=== PATIENT | male | born 1980 | race Caucasian/White ===

== ENCOUNTER 2017-06-28 20:01 | Emergency (ER) | payer SELFPAY ==
[2017-06-28] MEDS ORDERED: Orphenadrine 100 MG Tab.ER PO STA (20:36)
--- NOTE | 2017-06-28 20:36 | EDM.PDOC ---
ED HPI GENERAL MEDICAL PROBLEM - General Chief Complaint: Upper Extremity Injury/Pain Stated Complaint: SHOULDER PAIN Time Seen by Provider: 06/28/17 20:18 Source of Information: Reports: Patient History Limitations: Reports: No Limitations - History of Present Illness INITIAL COMMENTS - FREE TEXT/NARRATIVE: The patient states that he has had anterior left axillary and upper left trapezius area pain for the past 4-5 days. He states that he slipped and fell on ice a couple of weeks ago, landing on his left wrist, but he did not injure his shoulder, and denies any other shoulder injury or known strain. He states that heat helps, as well as a Lidoderm patch which she started yesterday. No prior similar symptoms. The patient does not have a PCP. 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 Left Shoulder Pain Score (Numeric/FACES): 3 - Related Data Allergies Allergy/AdvReac Type Severity Reaction Status Date / Time No Known Allergies Allergy Verified 06/28/17 20:08 Home Meds: Home Meds Amphetamine/Dextroamphetamine [Adderall] 20 mg PO DAILY 06/28/17 [History] Orphenadrine [Norflex] 1 tab PO Q12H PRN #14 tab.er 06/28/17 [Rx] Past Medical History Cardiovascular History: Reports: Hypertension Psychiatric History: Reports: ADHD Endocrine/Metabolic History: Reports: Obesity/BMI 30+ - Past Surgical History Cardiovascular Surgical History: Reports: Other (See Below) (Left femoral artery repair) Social & Family History - Family History Family Medical History: Noncontributory - Tobacco Use Tobacco Use Within Last Twelve Months: Cigars - Caffeine Use Caffeine Use: Reports: Coffee, Energy Drinks, Soda, Tea - Alcohol Use Alcohol Use History: Yes Alcohol Use Frequency: Rarely - Recreational Drug Use Recreational Drug Use: No - Living Situation & Occupation Living situation: Reports: , with Significant Other (Fiance), with Family (3 kids) Occupation: Employed ([employer]) Review of Systems - Review of Systems Review Of Systems: ROS reveals no pertinent complaints other than HPI. ED EXAM, GENERAL - Physical Exam Exam: See Below Exam Limited By: No Limitations General Appearance: Alert, WD/WN, No Apparent Distress Extremities: Other (No visible abnormality to the left shoulder, such as swelling, erythema, ecchymosis, or abrasion. The patient has reproducible tenderness to the left pectoralis muscle tendon at the anterior left axilla. He also has reproducible tenderness to palpation along the left infraspinatus muscle.) Course - Vital Signs Last Recorded V/S: Last Vital Signs Temp 36.7 C 06/28/17 20:09 Pulse 112 H 06/28/17 20:09 Resp 18 06/28/17 20:09 BP 189/140 H 06/28/17 20:09 Pulse Ox 98 06/28/17 20:09 - Orders/Labs/Meds Orders: Active Orders 24 hr Category Date Time Status Shoulder Comp Lt [CR] Stat Exams 06/28/17 20:30 Taken Meds: Medications Discontinued Medications Generic Name Dose Route Start Last Admin Trade Name Freq PRN Reason Stop Dose Admin Orphenadrine Citrate 100 mg 06/28/17 20:36 06/28/17 20:45 Norflex PO 06/28/17 20:37 100 mg ONETIME STA Administration - Re-Assessments/Exams Free Text/Narrative Re-Assessment/Exam: 06/28/17 20:47 3-view radiographs of the left shoulder appear to be normal. No fracture or dislocation identified. No evidence of osteoarthritis. Formal read per the Radiologist pending. 06/28/17 20:52 X-ray results discussed with the patient. As above, the patient appears to have left pectoralis tendon tenderness, for unclear reasons. He likely strained it, and also has muscle spasm in the left infraspinatus. I have started him on Norflex, and will e-prescribe an additional 7 days. I would also like him to take [id number] ibuprofen, and continue using the Lidoderm patch. I will refer him to Dr. Bonner, should his symptoms not improve within for 5 days. Departure - Departure Time of Disposition: 20:54 Disposition: Home, Self-Care 01 Condition: Good Clinical Impression: Tendinitis of left pectoralis major, Strain of left infraspinatus muscle - Discharge Information Referrals: PCP,None [Primary Care Provider] - Rad Bonner MD [Physician] - Forms: ED Department Discharge Additional Instructions: You were seen in the emergency room for left shoulder pain for the past 4 or 5 days. Workup in the ER included x-rays of her shoulder, which returned normal. No broken bones, and no evidence of arthritis. On examination, you appear to have left pectoralis muscle tendinitis, and left infraspinatus muscle spasm. You have been started on the muscle relaxant Norflex. A prescription for this has been sent to the [facility], located in the [facility] store , [address] [place] [address]. Take one tablet every 12 hours, starting tomorrow morning, , 06/29/2017, as prescribed. In addition to Norflex, you should also take [id number] ibuprofen, 3-4 tablets (600-800 mg) every 8 hours, with food, as needed for discomfort. In addition to Norflex and ibuprofen, you can also continue to use a Lidoderm patch for 12 hours every day. If your symptoms persist through the end of this week, please follow-up with the Orthopedic Surgeon Dr. Bonner early this coming week, for further evaluation. If any other problems, please do not hesitate to return to the ER. - My Orders Last 24 Hours: My Active Orders 06/28/17 20:30 Shoulder Comp Lt [CR] Stat - Assessment/Plan Last 24 Hours: My Active Orders 06/28/17 20:30 Shoulder Comp Lt [CR] Stat
--- NOTE | 2017-06-29 07:03 | CR ---
Left shoulder: Three views of left shoulder were obtained. Comparison: No previous study. Minimal inferior projection of the distal clavicle is seen at the acromioclavicular joint. Cystic area appears to be present within the glenoid. Glenoid is otherwise unremarkable. No acute fracture or other bony abnormality is seen. Impression: 1. Cystic area within the glenoid most likely benign. 2. Nothing acute is seen. Diagnostic code #2
== END 2017-06-28 21:28 | disposition home or self-care (01) ==
LOC: JD.ED 20:01
DX: S46.812A Strain of other muscles, fascia and tendons at shoulder and upper arm level, left arm, initial encounter (principal); M77.9 Enthesopathy, unspecified; I10 Essential (primary) hypertension; F17.290 Nicotine dependence, other tobacco product, uncomplicated; Z79.899 Other long term (current) drug therapy; W00.0XXA Fall on same level due to ice and snow, initial encounter
CPT/HCPCS: 73030; 99283; A9270